=== PATIENT | female | born 1995 | race Caucasian/White ===

== ENCOUNTER 2019-04-26 13:47 | Emergency (ER) | payer BC ==
[~2019-04-26] VITALS: Ht 165.1 cm; Wt 61.0 kg
[2019-04-26 14:17] VITALS: BP 102/60
--- NOTE | 2019-04-26 14:31 | NUR ---
PT HERE FOR RECHECK OF LEFT WRIST. PT STATES SPRAIN X 1 WEEK AGO AND STILL HURTS AT TIMES, NEEDS WORK CLEARANCE.
--- NOTE | 2019-04-26 15:16 | NUR ---
Patient/Caregiver given discharge instructions and they have confirmed that they understand the instructions. Patient ambulatory with steady gait.
== END 2019-04-26 15:20 | disposition home or self-care (01) ==
LOC: ED 15:00
DX: G89.11 Acute pain due to trauma (principal); M25.532 Pain in left wrist; M79.632 Pain in left forearm; X58.XXXA Exposure to other specified factors, initial encounter; Y93.89 Activity, other specified; Y92.098 Other place in other non-institutional residence as the place of occurrence of the external cause; Y99.8 Other external cause status
CPT/HCPCS: 99283